=== PATIENT | female | born 1965 | race African-American/Black ===

== ENCOUNTER 2018-07-01 02:01 | Inpatient (IN) | payer MEDICARE, MEDICAID ==
[2018-07-01] VITALS (30 sets, daily range): BP systolic 48–141; BP diastolic 23–97
[~2018-07-01] VITALS: Ht 167.6 cm; Wt 68.5 kg
[~2018-07-01 02:01] MED LIST: ATOR10TA69 PO; CLOP75TA33 PO; FERR142T6 PO; LORA0.5T2 PO; METO-539 PO; NEPVIT PO; PROT40 PO; REN800 PO; [UNRECOGNIZED DRUG - OTHER]
[2018-07-01] MEDS ORDERED: DEXTROSE 50% WATER 50ML SYRINGE IV ONE ×4 (02:30→13:45)
[2018-07-01] MEDS ORDERED: DEXTROSE 50% WATER 50ML SYRINGE IV NR ×2 (02:45→13:36)
[2018-07-01 03:07] LABS: HEMOGLOBIN. 16.8 g/dL (12.0-16.0); MEAN CORPUSCULAR HEMOGLOBIN 30.5 pg (28.0-32.0); MEAN CORPUSCULAR VOLUME 94.9 fL (81.0-99.0); MEAN PLATELET VOLUME 10.1 fl (7.4-10.4); PLATELET 113 x1000/uL (130-400); RED BLOOD CELL COUNT 5.48 mill/uL (4.2-5.4); RED CELL DISTRIBUTION WIDTH 18.3 % (11.6-14.6)
[2018-07-01 03:10] LABS: INR 1.2
[2018-07-01 03:12] LABS: CHLORIDE 99 mEq/L (98-107)
[2018-07-01 04:33] LABS: NUCLEATED RED BLOOD CELLS 1 /100 WBC
[2018-07-01 04:34] LABS: PLATELET ESTIMATE SLIGHTLY DECREASED
[2018-07-01] MEDS ORDERED: HYDROCORTISONE SOD SUCCINATE 100 MG/2 ML VIAL IV NR (05:00)
[2018-07-01] MEDS ORDERED: ACETAMINOPHEN 325MG TABLET PO PRN (07:45)
[2018-07-01] MEDS ORDERED: CLONIDINE 0.1MG TABLET PO PRN (07:45)
[2018-07-01] MEDS ORDERED: ONDANSETRON HCL 4MG/2ML INJ IV PRN (07:45)
[2018-07-01] MEDS ORDERED: DOCUSATE SODIUM 100MG CAPSULE PO PRN (07:45)
[2018-07-01] MEDS: DIPHENHYDRAMINE 50MG/ML VIAL IV PRN ×2 (08:43→15:50)
[2018-07-01] MEDS: HYDROCODONE/ACETAMINOPHEN 5/325MG TABLET PO PRN (10:08)
[2018-07-01] MEDS ORDERED: FUROSEMIDE 100MG/10ML VIAL IV STA (10:40)
[2018-07-01] MEDS ORDERED: ALBUTEROL (0.083%) 2.5MG/3ML NEB HHN ONE (10:45)
[2018-07-01] MEDS ORDERED: CALCIUM CHLORIDE 1GM/10ML SYR IV ONE ×2 (10:45→13:44)
[2018-07-01] MEDS ORDERED: INSULIN REGULAR (HUMULIN R) 300UNITS/3ML IV ONE (10:45)
[2018-07-01] MEDS ORDERED: SODIUM BICARBONATE 8.4% 1 MEQ/ML 50ML SYR IV ONE (10:45)
[2018-07-01] MEDS ORDERED: SODIUM POLYSTYRENE SULFONATE 15 G/60 ML BOT PO ONE (11:00)
[2018-07-01] MEDS ORDERED: CALCIUM CHLORIDE 1GM/10ML SYR IV NR (13:35)
[2018-07-01] MEDS ORDERED: INSULIN REGULAR (HUMULIN R) 300UNITS/3ML IV NR (13:37)
[2018-07-01] MEDS: AMLODIPINE 10MG TABLET PO SCH (15:30)
[2018-07-01] MEDS: ENOXAPARIN 30MG/0.3ML SYR SUBCUT SCH ×2 (15:52→16:00)
[2018-07-01] MEDS ORDERED: HEPARIN SODIUM 1,000 UNIT/1ML VIAL IV NR (18:03)
[2018-07-01] MEDS ORDERED: PNEUMOCOCCAL 23-VAL P-SAC VAC 0.5 ML IM ONE (18:15)
[2018-07-01] MEDS ORDERED: DEXTROSE 50% WATER 50ML SYRINGE IV PRN (19:45)
[2018-07-01] MEDS: BLOOD SUGAR DIAGNOSTIC STRIP TEST SCH (21:00)
[2018-07-01] MEDS: INSULIN LISPRO 100 UNITS/ML SUBCUT SCH (21:00)
[2018-07-01] MEDS: PANTOPRAZOLE 40MG DR TABLET PO SCH (22:09)
[2018-07-02] VITALS (25 sets, daily range): BP systolic 66–134; BP diastolic 35–86
[2018-07-02] MEDS: BLOOD SUGAR DIAGNOSTIC STRIP TEST SCH ×5 (06:09→21:54)
[2018-07-02] MEDS: INSULIN LISPRO 100 UNITS/ML SUBCUT SCH ×4 (06:21→22:01)
[2018-07-02] MEDS: SEVELAMER CARBONATE 800 MG TABLET PO SCH ×3 (06:32→17:00)
[2018-07-02] MEDS: PANTOPRAZOLE 40MG DR TABLET PO SCH ×2 (06:33→22:00)
[2018-07-02] MEDS: AMLODIPINE 10MG TABLET PO SCH (09:00)
[2018-07-02 10:02] LABS: HEMATOCRIT. 49.3 % (36.0-48.0); HEMOGLOBIN. 15.9 g/dL (12.0-16.0); MEAN CORPUSCULAR HEMOGLOBIN 30.6 pg (28.0-32.0); MEAN CORPUSCULAR VOLUME 94.9 fL (81.0-99.0); RED CELL DISTRIBUTION WIDTH 18.7 % (11.6-14.6)
[2018-07-02 10:08] LABS: CHLORIDE 99 mEq/L (98-107)
[2018-07-02 10:18] LABS: LDL CHOLESTEROL 93 mg/dL (5-100)
[2018-07-02 10:19] LABS: HDL CHOLESTEROL 56 mg/dL (40-59)
[2018-07-02 11:18] LABS: PLATELET 101 x1000/uL (130-400)
[2018-07-02 11:21] LABS: PLATELET ESTIMATE SLIGHTLY DECREASED
[2018-07-02] MEDS: ENOXAPARIN 30MG/0.3ML SYR SUBCUT SCH (18:18)
[2018-07-02] MEDS: HYDROCODONE/ACETAMINOPHEN 5/325MG TABLET PO PRN (18:19)
[2018-07-02] MEDS: DIPHENHYDRAMINE 50MG/ML VIAL IV PRN (18:22)
[2018-07-03] VITALS: BP 95/43
[2018-07-03] MEDS: DIPHENHYDRAMINE 50MG/ML VIAL IV PRN ×3 (00:20→17:14)
[2018-07-03 04:00] VITALS: BP 104/63
[2018-07-03] MEDS: PANTOPRAZOLE 40MG DR TABLET PO SCH ×2 (05:54→20:05)
[2018-07-03] MEDS: BLOOD SUGAR DIAGNOSTIC STRIP TEST SCH ×4 (06:44→21:00)
[2018-07-03 06:50] LABS: CHLORIDE 98 mEq/L (98-107)
[2018-07-03 07:56] LABS: EOSINOPHILS % 2.2 % (0.0-5.0); HEMATOCRIT. 48.9 % (36.0-48.0); HEMOGLOBIN. 15.8 g/dL (12.0-16.0); LYMPHOCYTES % 16.6 % (20.0-50.0); MEAN CORPUSCULAR HEMOGLOBIN 30.6 pg (28.0-32.0); MONOCYTES % 13.8 % (2.0-8.0); NEUTROPHILS % 66.4 % (40.0-76.0); RED BLOOD CELL COUNT 5.15 mill/uL (4.2-5.4); RED CELL DISTRIBUTION WIDTH 18.2 % (11.6-14.6)
[2018-07-03 08:00] VITALS: BP 96/58
[2018-07-03] MEDS: INSULIN LISPRO 100 UNITS/ML SUBCUT SCH ×4 (08:10→20:07)
[2018-07-03] MEDS: SEVELAMER CARBONATE 800 MG TABLET PO SCH ×4 (08:10→18:59)
[2018-07-03] MEDS: AMLODIPINE 10MG TABLET PO SCH (09:00)
[2018-07-03] MEDS ORDERED: HEPARIN SODIUM 1,000 UNIT/1ML VIAL IV NR (09:45)
[2018-07-03 10:34] LABS: PLATELET 98 x1000/uL (130-400)
[2018-07-03 12:00] VITALS: BP 112/81
[2018-07-03 16:00] VITALS: BP 126/66
[2018-07-03] MEDS: ENOXAPARIN 30MG/0.3ML SYR SUBCUT SCH (17:12)
[2018-07-03 20:00] VITALS: BP 112/70
[2018-07-04] VITALS: BP 95/51
== END 2018-07-04 01:00 | disposition left against medical advice (07) | DRG 70 ==
LOC: ER 02:01 → MICUSO 04:29 → EDBEDREQ 04:30 → SUPCPDRO 07:29 → EDBEDREQSVC 12:33 → ENRESERV 13:06 → 7WST 07-02 12:10
PROVIDERS: ADMIT Hospitalist; ATTEND Hospitalist
PROC: 5A1D70Z Performance of Urinary Filtration, Intermittent, Less than 6 Hours Per Day (ICD-10-PCS; 2018-07-01)
PROC: 5A1D70Z Performance of Urinary Filtration, Intermittent, Less than 6 Hours Per Day (ICD-10-PCS; 2018-07-02)
PROC: 5A1D70Z Performance of Urinary Filtration, Intermittent, Less than 6 Hours Per Day (ICD-10-PCS; principal; 2018-07-03)
DX: G93.41 Metabolic encephalopathy (principal); I50.33 Acute on chronic diastolic (congestive) heart failure; N18.6 End stage renal disease; I13.2 Hypertensive heart and chronic kidney disease with heart failure and with stage 5 chronic kidney disease, or end stage renal disease; E87.5 Hyperkalemia; Z99.2 Dependence on renal dialysis; S50.911A Unspecified superficial injury of right forearm, initial encounter; X58.XXXA Exposure to other specified factors, initial encounter; E88.09 Other disorders of plasma-protein metabolism, not elsewhere classified; Z53.21 Procedure and treatment not carried out due to patient leaving prior to being seen by health care provider; E11.22 Type 2 diabetes mellitus with diabetic chronic kidney disease; E11.649 Type 2 diabetes mellitus with hypoglycemia without coma; Z79.4 Long term (current) use of insulin; Z88.0 Allergy status to penicillin; Z88.6 Allergy status to analgesic agent; Z79.84 Long term (current) use of oral hypoglycemic drugs; Z79.899 Other long term (current) drug therapy; Y93.89 Activity, other specified; Y92.89 Other specified places as the place of occurrence of the external cause; Y99.8 Other external cause status
CPT/HCPCS: 36415; 71045; 80048; 80061; 82533; 82962; 83036; 83605; 83880; 84132; 84134; 84145; 84484; 93005; 93970; 94640; 96374; 99291; J1200; J1644; J1650; J1720; J1815; J1940; J2405; J3490; J7611